=== PATIENT | male | born 1980 | race Caucasian/White ===

== ENCOUNTER 2018-03-03 21:05 | Observation (INO) | payer BC, OTHER ==
[2018-03-03] MEDS ORDERED: MORPHINE 4 MG/ML SYR ONE ×2 (21:33→23:24)
[2018-03-03] MEDS ORDERED: NA CHLORIDE 0.9% 1,000 ML ONE ×2 (21:34→22:14)
[2018-03-03] MEDS ORDERED: ONDANSETRON 4 MG/2 ML VIAL ONE (21:34)
[2018-03-03 21:45] LABS: Absolute Lymphocytes (CBC) 1.2 K/uL (0.7-4.9); Absolute Monocytes 0.9 K/uL (0.1-1.3); Absolute Neutrophil 15.9 K/uL (1.8-8.0); Basophils % 0.2 % (0-1.3); Eosinophils % 0.1 % (0-4.4); Hematocrit 47.4 % (39.6-49.0); Lymphocytes % 6.6 % (15.3-44.8); MCH 30.9 pg (27.0-35.0); MCV 88.9 fL (80-100); MPV 8.2 fL (7.6-11.3); Monocytes % 5.2 % (3.3-12.3); RBC Red Blood Cell Count 5.33 M/uL (4.33-5.43)
[2018-03-03 21:54] LABS: Protime INR 1.03
[2018-03-03 22:02] LABS: Blood Morphology Comment NOT SEEN (NOT SEEN); Platelet Estimate ADEQ; Urine White Blood Cell Casts OK
--- NOTE | 2018-03-03 22:04 | EDPHYS ---
Physician Documentation [facility] Name: Lang Cruz Age: 37 yrs Sex: Male : 1980 Arrival Date: 03/03/2018 Time: 21:06 Bed 15 Private MD: ED Physician Óscar Mayo HPI: 03/03 21:58 This 37 yrs old Male presents to ER via Ambulatory with complaints of germán Abdominal Pain. 21:58 The patient presents with abdominal pain in the lower abdomen, right lower quadrant. germán Onset: The symptoms/episode began/occurred 1 day(s) ago. The patient presents to the emergency department with nausea, vomiting, abdominal pain, of the right lower quadrant. Onset: The symptoms/episode began/occurred 1 day(s) ago. Possible causes: unknown. The symptoms are aggravated by nothing. The symptoms are alleviated by nothing. Associated signs and symptoms: The patient has no apparent associated signs or symptoms. Historical: - Allergies: 21:13 No Known Allergies; aj1 - Home Meds: 21:13 lisinopril Oral [Active]; Metformin Oral [Active]; aj1 - PMHx: 21:13 Diabetes - NIDDM; Hypertension; aj1 - PSHx: 21:13 Knee surgery; aj1 - Immunization history:: Flu vaccine is up to date. - Social history:: Smoking status: Patient uses tobacco products, smokes one-half pack cigarettes per day. - Ebola Screening: : Patient denies travel to an Ebola-affected area in the 21 days before illness onset. - Family history:: not pertinent. ROS: 21:58 Constitutional: Negative for fever, chills, and weight loss, Eyes: Negative for injury, germán pain, redness, and discharge, ENT: Negative for injury, pain, and discharge, Neck: Negative for injury, pain, and swelling, Cardiovascular: Negative for chest pain, palpitations, and edema, Respiratory: Negative for shortness of breath, cough, wheezing, and pleuritic chest pain, Back: Negative for injury and pain, : Negative for injury, bleeding, discharge, and swelling, MS/Extremity: Negative for injury and deformity, Skin: Negative for injury, rash, and discoloration, Neuro: Negative for headache, weakness, numbness, tingling, and seizure, Psych: Negative for depression, anxiety, suicide ideation, homicidal ideation, and hallucinations, Allergy/Immunology: Negative for hives, rash, and allergies, Endocrine: Negative for neck swelling, polydipsia, polyuria, polyphagia, and marked weight changes, Hematologic/Lymphatic: Negative for swollen nodes, abnormal bleeding, and unusual bruising. 21:58 Abdomen/GI: Positive for abdominal pain, nausea, vomiting, abdominal distension, of the right lower quadrant. Exam: 21:58 Constitutional: This is a well developed, well nourished patient who is awake, alert, germán and in no acute distress. Head/Face: Normocephalic, atraumatic. Eyes: Pupils equal round and reactive to light, extra-ocular motions intact. Lids and lashes normal. Conjunctiva and sclera are non-icteric and not injected. Cornea within normal limits. Periorbital areas with no swelling, redness, or edema. ENT: Nares patent. No nasal discharge, no septal abnormalities noted. Tympanic membranes are normal and external auditory canals are clear. Oropharynx with no redness, swelling, or masses, exudates, or evidence of obstruction, uvula midline. Mucous membranes moist. Neck: Trachea midline, no thyromegaly or masses palpated, and no cervical lymphadenopathy. Supple, full range of motion without nuchal rigidity, or vertebral point tenderness. No Meningismus. Chest/axilla: Normal chest wall appearance and motion. Nontender with no deformity. No lesions are appreciated. Cardiovascular: Regular rate and rhythm with a normal S1 and S2. No gallops, murmurs, or rubs. Normal PMI, no JVD. No pulse deficits. Respiratory: Lungs have equal breath sounds bilaterally, clear to auscultation and percussion. No rales, rhonchi or wheezes noted. No increased work of breathing, no retractions or nasal flaring. Back: No spinal tenderness. No costovertebral tenderness. Full range of motion. Male : Normal genitalia with no discharge or lesions. Skin: Warm, dry with normal turgor. Normal color with no rashes, no lesions, and no evidence of cellulitis. MS/ Extremity: Pulses equal, no cyanosis. Neurovascular intact. Full, normal range of motion. Neuro: Awake and alert, GCS 15, oriented to person, place, time, and situation. Cranial nerves II-XII grossly intact. Motor strength 5/5 in all extremities. Sensory grossly intact. Cerebellar exam normal. Normal gait. Psych: Awake, alert, with orientation to person, place and time. Behavior, mood, and affect are within normal limits. 21:58 Abdomen/GI: Inspection: abdomen appears normal, Bowel sounds: normal, Palpation: moderate abdominal tenderness, in the right lower quadrant, Indicators: McBurney's point is tender, Liver: no appreciated palpable abnormalities, Hernia: not appreciated. Vital Signs: 21:13 BP 171 / 103; Pulse 106; Resp 20; Temp 98.0(O); Pulse Ox 99% on R/A; Weight 106.59 kg aj1 (R); Height 5 ft. 11 in. (180.34 cm) (R); Pain 10/10; 22:30 BP 176 / 100; Pulse 94; Resp 22; Pulse Ox 100% on R/A; aa1 23:26 BP 177 / 103; Pulse 86; Resp 20; Pulse Ox 97% on R/A; aa1 21:13 Body Mass Index 32.78 (106.59 kg, 180.34 cm) [facility] MDM: 21:17 Patient medically screened. [facility] 22:00 Data reviewed: vital signs, nurses notes, lab test result(s), EKG, radiologic studies, [facility] CT scan, plain films. 03/03 21:20 Order name: Basic Metabolic Panel; Complete Time: 22:12 [facility] 03/03 21:20 Order name: CBC with Diff; Complete Time: 22:04 [facility] 03/03 21:20 Order name: LFT's; Complete Time: 22:12 [facility] 03/03 21:20 Order name: Magnesium; Complete Time: 22:12 [facility] 03/03 21:20 Order name: NT PRO-BNP; Complete Time: 22:12 [facility] 03/03 21:20 Order name: PT-INR; Complete Time: 22:04 [facility] 03/03 21:20 Order name: Troponin (emerg Dept Use Only); Complete Time: 22:12 [facility] 03/03 21:20 Order name: XRAY Chest (1 view) [facility] 03/03 21:20 Order name: Lipase; Complete Time: 22:12 [facility] 03/03 21:20 Order name: Urine Culture [facility] 03/03 21:21 Order name: CT Abd/Pelvis - W/Contrast [facility] 03/03 21:53 Order name: CBC Smear Scan; Complete Time: 22:04 [facility] 03/03 21:20 Order name: EKG; Complete Time: 21:21 [facility] 03/03 21:20 Order name: Cardiac monitoring; Complete Time: 21:38 [facility] 03/03 21:20 Order name: EKG - Nurse/Tech; Complete Time: 22:27 [facility] 03/03 21:20 Order name: IV Saline Lock; Complete Time: 21:25 [facility] 03/03 21:20 Order name: Labs collected and sent; Complete Time: 21:25 [facility] 03/03 21:20 Order name: O2 Per Protocol; Complete Time: 21:39 [facility] 03/03 21:20 Order name: O2 Sat Monitoring; Complete Time: 21:39 [facility] 03/03 22:08 Order name: CONS Physician Consult EDUT Administered Medications: 21:38 Drug: NS 0.9% 1000 ml Route: IV; Rate: 1 bolus; Site: right forearm; aj1 23:35 Follow up: IV Status: Completed infusion aa1 21:38 Drug: morphine 4 mg Route: IVP; Site: right forearm; aj1 23:22 Follow up: Response: No adverse reaction; Pain is unchanged, physician notified aa1 21:38 Drug: Zofran 4 mg Route: IVP; Site: right forearm; aj1 23:22 Follow up: Response: No adverse reaction; Nausea is decreased aa1 22:15 Drug: Mefoxin 2 grams Route: IVPB; Infused Over: 30 mins; Site: right antecubital; aa1 23:23 Follow up: IV Status: Completed infusion aa1 22:15 Drug: Flagyl 500 mg Volume: 100 ml; Route: IVPB; Rate: 200 ml/hr; Infused Over: 30 aa1 mins; Site: right antecubital; 23:35 Follow up: IV Status: Completed infusion aa1 23:24 Drug: morphine 4 mg Route: IVP; Site: right antecubital; aa1 23:36 Drug: NS 0.9% 1000 ml Route: IV; Rate: 125 ml/hr; Site: right antecubital; aa1 23:37 Follow up: IV Status: Infusion continued upon admission aa1 Disposition: 03/03/18 22:04 Hospitalization ordered by Sherry Coleman for Inpatient Admission. Preliminary diagnosis are Abdominal tenderness, Essential (primary) hypertension, Type 2 diabetes mellitus, Elevated white blood cell count, Acute appendicitis, Obesity, unspecified. - Bed requested for Telemetry/MedSurg (Inpatient). - Status is Inpatient Admission. aa1 - Condition is Fair. - Problem is new. - Symptoms have improved. UTI on Admission? No Signatures: Dispatcher [employer] EDCheri Echeverria, RN RN aj1 Sallie Tobias RN TISHA Moni Echols RN RN aa1 Óscar Mayo MD MD [facility] Corrections: (The following items were deleted from the chart) 22:12 22:04 Hospitalization Ordered by Sherry Coleman MD for Inpatient Admission. Preliminary [facility] diagnosis is Abdominal tenderness; Essential (primary) hypertension; Type 2 diabetes mellitus. Bed requested for Telemetry/MedSurg (Inpatient). Status is Inpatient Admission. Condition is Fair. Problem is new. Symptoms have improved. UTI on Admission? No. germán 22:29 22:12 03/03/2018 22:04 Hospitalization Ordered by Sherry Coleman MD for Inpatient mw Admission. Preliminary diagnosis is Abdominal tenderness; Essential (primary) hypertension; Type 2 diabetes mellitus; Elevated white blood cell count. Bed requested for Telemetry/MedSurg (Inpatient). Status is Inpatient Admission. Condition is Fair. Problem is new. Symptoms have improved. UTI on Admission? No. germán 22:37 22:29 03/03/2018 22:04 Hospitalization Ordered by Sherry Coleman MD for Inpatient germán Admission. Preliminary diagnosis is Abdominal tenderness; Essential (primary) hypertension; Type 2 diabetes mellitus; Elevated white blood cell count. Bed requested for Telemetry/MedSurg (Inpatient). Status is Inpatient Admission. Condition is Fair. Problem is new. Symptoms have improved. UTI on Admission? No. 22:37 22:37 03/03/2018 22:04 Hospitalization Ordered by Sherry Coleman MD for Inpatient germán Admission. Preliminary diagnosis is Abdominal tenderness; Essential (primary) hypertension; Type 2 diabetes mellitus; Elevated white blood cell count; Acute appendicitis. Bed requested for Telemetry/MedSurg (Inpatient). Status is Inpatient Admission. Condition is Fair. Problem is new. Symptoms have improved. UTI on Admission? No. germán 23:39 22:37 03/03/2018 22:04 Hospitalization Ordered by Sherry Coleman MD for Inpatient aa1 Admission. Preliminary diagnosis is Abdominal tenderness; Essential (primary) hypertension; Type 2 diabetes mellitus; Elevated white blood cell count; Acute appendicitis; Obesity, unspecified. Bed requested for Telemetry/MedSurg (Inpatient). Status is Inpatient Admission. Condition is Fair. Problem is new. Symptoms have improved. UTI on Admission? No. germán
--- NOTE | 2018-03-03 22:04 | ER ---
Nurse's Notes [facility] Name: Lang Cruz Age: 37 yrs Sex: Male : 1980 Arrival Date: 03/03/2018 Time: 21:06 Bed 15 Private MD: Diagnosis: Abdominal tenderness;Essential (primary) hypertension;Type 2 diabetes mellitus;Elevated white blood cell count;Acute appendicitis;Obesity, unspecified Presentation: 03/03 21:08 Presenting complaint: Patient states: Upper and lower abdominal pain, and mid back pain aj1 since yesterday that has gotten progressively worse. Reports nausea, denies V/D. Denies fever. Patient appears pale and diaphoretic. Transition of care: patient was not received from another setting of care. Onset of symptoms was March 02, 2018. Risk Assessment: Do you want to hurt yourself or someone else? Patient reports no desire to harm self or others. Initial Sepsis Screen: Does the patient meet any 2 criteria? HR > 90 bpm. No. Patient's initial sepsis screen is negative. Does the patient have a suspected source of infection? Yes: Acute abdominal pain. Care prior to arrival: None. 21:08 Method Of Arrival: Ambulatory aj1 21:08 Acuity: LEW 2 aj1 Triage Assessment: 21:13 General: Appears uncomfortable, Behavior is cooperative, restless. Pain: Complains of aj1 pain in back and abdomen Pain currently is 10 out of 10 on a pain scale. Neuro: Level of Consciousness is awake, alert, obeys commands. Cardiovascular:. Respiratory: Airway is patent Respiratory effort is even, unlabored, Respiratory pattern is regular, symmetrical. GI: Reports lower abdominal pain, upper abdominal pain. Derm: Skin is diaphoretic, Skin is pale. Historical: - Allergies: 21:13 No Known Allergies; aj1 - Home Meds: 21:13 lisinopril Oral [Active]; Metformin Oral [Active]; aj1 - PMHx: 21:13 Diabetes - NIDDM; Hypertension; aj1 - PSHx: 21:13 Knee surgery; aj1 - Immunization history:: Flu vaccine is up to date. - Social history:: Smoking status: Patient uses tobacco products, smokes one-half pack cigarettes per day. - Ebola Screening: : Patient denies travel to an Ebola-affected area in the 21 days before illness onset. - Family history:: not pertinent. Screenin:35 Abuse screen: Denies threats or abuse. Denies injuries from another. Nutritional aa1 screening: No deficits noted. Tuberculosis screening: No symptoms or risk factors identified. Fall Risk None identified. Assessment: 21:35 General: Appears in no apparent distress. uncomfortable, Behavior is calm, cooperative, aa1 appropriate for age. Pain: Complains of pain in right lower quadrant Pain currently is 10 out of 10 on a pain scale. Quality of pain is described as stabbing, Is continuous. Neuro: Level of Consciousness is awake, alert, obeys commands, Oriented to person, place, time, situation, Moves all extremities. Full function Gait is steady. Cardiovascular: Heart tones S1 S2 present Rhythm is regular. Respiratory: Airway is patent Respiratory effort is even, unlabored, Respiratory pattern is regular, symmetrical. GI: Abdomen is non-distended, Bowel sounds present X 4 quads. Abd is soft X 4 quads Abdomen is tender to palpation in right lower quadrant and left lower quadrant Reports lower abdominal pain, nausea. : No signs and/or symptoms were reported regarding the genitourinary system. EENT: No signs and/or symptoms were reported regarding the EENT system. Derm: Skin is intact, is healthy with good turgor, Skin is pink, warm \T\ dry. Musculoskeletal: Circulation, motion, and sensation intact. Capillary refill < 3 seconds. 23:23 Reassessment: Patient appears in no apparent distress at this time. Patient and/or aa1 family updated on plan of care and expected duration. Pain level reassessed. Patient is alert, oriented x 3, equal unlabored respirations, skin warm/dry/pink. Pt awaiting OR. 23:37 Reassessment: Patient appears in no apparent distress at this time. Patient is alert, aa1 oriented x 3, equal unlabored respirations, skin warm/dry/pink. OR staff present to take pt to surgery. Vital Signs: 21:13 BP 171 / 103; Pulse 106; Resp 20; Temp 98.0(O); Pulse Ox 99% on R/A; Weight 106.59 kg aj1 (R); Height 5 ft. 11 in. (180.34 cm) (R); Pain 10/10; 22:30 BP 176 / 100; Pulse 94; Resp 22; Pulse Ox 100% on R/A; aa1 23:26 BP 177 / 103; Pulse 86; Resp 20; Pulse Ox 97% on R/A; aa1 21:13 Body Mass Index 32.78 (106.59 kg, 180.34 cm) aj ED Course: 21:06 Patient arrived in ED. es 21:12 Triage completed. aj1 21:13 Arm band placed on Patient placed in an exam room. aj1 21:17 Óscar Mayo MD is Attending Physician. [facility] 21:25 Notified ED physician of other patient reports severe pain. Order received for morphine aj1 and zofran. See MAR for more information. 21:25 Initial lab(s) drawn, by wa, sent to lab. Inserted saline lock: 22 gauge in right aj forearm, using aseptic technique. Blood collected. 21:37 XRAY Chest (1 view) In Process Unspecified. EDMS 21:39 Patient has correct armband on for positive identification. Bed in low position. Call 1 light in reach. Side rails up X 1. personnel monitor on. Pulse ox on. NIBP on. 21:56 Moni Echols, TISHA is Primary Nurse. aa1 22:03 Sherry Coleman MD is Hospitalizing Provider. [facility] 22:[address] ri 22:37 CT completed. Patient tolerated procedure well. Patient moved back from [place]. ri 23:27 No provider procedures requiring assistance completed. Patient admitted, IV remains in aa1 place. Administered Medications: 21:38 Drug: NS 0.9% 1000 ml Route: IV; Rate: 1 bolus; Site: right forearm; aj1 23:35 Follow up: IV Status: Completed infusion aa1 21:38 Drug: morphine 4 mg Route: IVP; Site: right forearm; aj1 23:22 Follow up: Response: No adverse reaction; Pain is unchanged, physician notified aa1 21:38 Drug: Zofran 4 mg Route: IVP; Site: right forearm; aj1 23:22 Follow up: Response: No adverse reaction; Nausea is decreased aa1 22:15 Drug: Mefoxin 2 grams Route: IVPB; Infused Over: 30 mins; Site: right antecubital; aa1 23:23 Follow up: IV Status: Completed infusion aa1 22:15 Drug: Flagyl 500 mg Volume: 100 ml; Route: IVPB; Rate: 200 ml/hr; Infused Over: 30 aa1 mins; Site: right antecubital; 23:35 Follow up: IV Status: Completed infusion aa1 23:24 Drug: morphine 4 mg Route: IVP; Site: right antecubital; aa1 23:36 Drug: NS 0.9% 1000 ml Route: IV; Rate: 125 ml/hr; Site: right antecubital; aa1 23:37 Follow up: IV Status: Infusion continued upon admission aa1 Outcome: 22:04 Decision to Hospitalize by Provider. germán 23:38 Admitted to OR accompanied by nurse, accompanied by tech, family with patient, via aa1 stretcher, with chart. 23:38 Condition: stable 23:38 Instructed on the need for admit, Demonstrated understanding of instructions. 23:39 Patient left the ED. aa1 Signatures: Dispatcher [employer] Cheri Elizabeth RN RN aj1 Moni Echols RN RN aa1 Óscar Mayo MD MD cha Salyer, Vinod Ruth Corrections: (The following items were deleted from the chart) 21:15 21:08 Acuity: LEW 3 aj1 aj1
[2018-03-03 22:05] LABS: ALT/SGPT 46 U/L (12-78); AST/SGOT 16 U/L (15-37); Albumin 4.3 g/dL (3.4-5.0); Alkaline Phosphatase 83 U/L (45-117); BUN Blood Urea Nitrogen 12 mg/dL (7-18); Bicarbonate 21 mmol/L (21-32); Bilirubin Direct 0.2 mg/dL (0-0.2); Bilirubin Total 0.8 mg/dL (0.2-1.0); Glucose Level 197 mg/dL (74-106); Lipase 111 U/L (73-393); Magnesium 2.1 mg/dL (1.8-2.4); NT PRO-BNP 326 pg/mL (<125); Potassium 3.8 mmol/L (3.5-5.1); Protein, Total 8.7 g/dL (6.4-8.2); Sodium Level 138 mmol/L (136-145); Troponin (Emerg Dept Use Only) < 0.02 ng/mL (0.0-0.045)
[2018-03-03] MEDS ORDERED: METRONIDAZOLE 500mg IVPB 500 MG/100 ML BAG IV ONE (22:14)
[2018-03-03] MEDS ORDERED: NA CHLORIDE 0.9% 100 ML IV ONE (22:15)
[2018-03-03] MEDS ORDERED: CEFOXITIN SODIUM 2 GM/VIAL ONE (22:15)
[2018-03-03] MEDS ORDERED: ONDANSETRON 4 MG/2 ML VIAL IV PRN (23:52)
[2018-03-03] MEDS ORDERED: ACETAMINOPHEN 500 MG TAB PO PRN (23:52)
[2018-03-03] MEDS ORDERED: SUCCINYLCHOLINE 20 MG/ML (10 ML) IV ONE (23:54)
[2018-03-03] MEDS ORDERED: MORPHINE 2 MG/ML SYR IV PRN (23:57)
[2018-03-04] MEDS ORDERED: INSULIN -REGULAR HUMAN 50 UNIT/0.5 ML ML SQ SCH
[2018-03-04] MEDS ORDERED: PROPOFOL 200 MG/20 ML VIAL IV ONE (00:01)
[2018-03-04] MEDS ORDERED: MIDAZOLAM HCL 2 MG/2 ML INJ ONE (00:02)
[2018-03-04] MEDS ORDERED: FENTANYL CITR 250 MCG/5 ML ONE (00:02)
[2018-03-04] MEDS ORDERED: BUPIVACAINE 0.5% PF 10 ML VIAL ONE (00:05)
[2018-03-04] MEDS ORDERED: ROCURONIUM 50 MG/5 ML VIAL IV ONE (00:20)
[2018-03-04] MEDS: NA CHLORIDE 0.9% 1,000 ML IV SCH ×3 (00:23→15:27)
[2018-03-04] MEDS ORDERED: ONDANSETRON HCL 40 MG/20 ML VIAL ONE (00:40)
[2018-03-04] MEDS ORDERED: NEOSTIGMINE 1 MG/ML -5 ML SYRINGE ONE (00:41)
[2018-03-04] MEDS ORDERED: GLYCOPYRROLATE 0.2 MG/ML SYR ONE (00:41)
--- NOTE | 2018-03-04 00:48 | P.BOP ---
Preoperative diagnosis: acute appendicitis, DM, HTN Postoperative diagnosis: same Primary procedure: Laparoscopic appendectomy Estimated blood loss: <10cc Specimen: hector Findings: as above Anesthesia: General Complications: None Transferred to: Recovery Room Condition: Good
[2018-03-04] MEDS ORDERED: Ringers Lactate 1,000 ML IV ONE (01:04)
[2018-03-04] MEDS ORDERED: KETOROLAC TROM 60 MG/2 ML INJ IM ONE ×3 (01:09→01:15)
[2018-03-04] MEDS ORDERED: FENTANYL CITR 100 MCG/2 ML IV ONE ×4 (01:10→01:15)
[2018-03-04] MEDS ORDERED: FENTANYL CITR 100 MCG/2 ML ONE (01:14)
[2018-03-04] MEDS: HYDROCODONE/APAP 7.5/325 MG TAB PO PRN ×3 (03:40→21:25)
--- NOTE | 2018-03-04 04:06 | CON ---
Date of Consultation: 03/03/2018 Diagnoses: Acute appendicitis. History Of Present Illness: This is the case of a 37-year-old patient, who comes to us with acute ab dominal pain, 2 days of duration, associated with nausea and vomiting. Today, the pain was worse, he decided to come to the ER. The patient denies any dysuria, hematuria, hematochezia, or melena. Den ies any recent traveling out of the country. Denies any family member sick at home. Past Medical History: Diabetes and hypertension. Medications: Lisinopril and metformin. Past Surgical History: Knee surgery. Family History: Unremarkable. Allergies: NONE. Social History: He does not smoke. He does not drink alcohol. Physical Examination: General: The patient is awake and alert. HEENT: Pupils are equal and reactive, anicteric. Neck: Supple. Chest: Clear. Heart: S1, S2. Abdomen: Right lower quadrant tenderness with guarding and rebound. Rovsing sign positive. Psoas s igns positive. Genitalia: No masses. Rectal: Deferred. Extremities: Good capillary refill. Laboratory Data: Blood work shows a leukocytosis with WBC count of 19. CAT scan of the abdomen and pelvis positive for acute appendicitis. Assessment: This is a 37-year-old patient with acute appendicitis. Benefits, alternatives, and risk s of laparoscopic with possible open appendectomy were fully explained to the patient, which include but are not limited to infection, bleeding, damage to adjacent structures, anesthesia complication, M I, and even . He also understands this may not relieve his symptoms, he might need more than on e surgical intervention. He understood, signed the consent. The OR was emergently called. JENNIFER/RADHA Voice ID: [id number] Report ID: [id number]
[2018-03-04 04:46] VITALS: BMI 32.8
--- NOTE | 2018-03-04 05:10 | P.HP ---
Certification for Inpatient Patient admitted to: Inpatient With expected LOS: >2 Midnights Practitioner: I am a practitioner with admitting privileges, knowledge of patient current condition, hospital course, and medical plan of care. Services: Services provided to patient in accordance with Admission requirements found in Title 42 Section 412.3 of the Code of Federal Regulations Patient History Date of Service: 03/03/18 Reason for admission: Acute appendicitis History of Present Illness: Mr Cruz is a 37-year-old male with history of obesity, diabetes mellitus types 2, hypertension, who start with abdominal pain localized right lower quadrant since yesterday. He described the pain as a constant, dull, 10/10 of intensity, associated with nausea but no vomiting or diarrhea. He denies fever or chills. He has never had these kind of pain in the past. Laboratory work remarkable for leukocytosis [address] scan abdomen and pelvis consistent with acute appendicitis. At arrival the patient was on distress due to severe pain, afebrile, with stable vital signs. Allergies No Known Allergies Allergy (Verified 03/04/18 02:54) Home medications list reviewed: Yes - Past Medical/Surgical History Has patient received pneumonia vaccine in the past: No Diabetic: Yes -: hypertension -: diabetes -: astigmatism -: Tobacco abuse -: Alcohol use -: knee surgery Psychosocial/ Personal History: The patient is . He has no children. He works at a local [employer]. - Family History Father -: Heart disease, Lung disease - Social History Smoking Status: Current every day smoker Counseled patient to stop smoking for: less than 10 minutes Smoking therapy provided: Yes Patient receptive to therapy: No Alcohol use: Yes CD- Drugs: No Caffeine use: Yes Place of Residence: Home Review of Systems 10-point ROS is otherwise unremarkable Physical Examination - Vital Signs Temperature: 97.7 F Blood Pressure: 168/90 Pulse: 90 Respirations: 16 - Physical Exam General: Alert, In no apparent distress HEENT: Atraumatic, PERRLA, Mucous membr. moist/pink, EOMI, Sclerae nonicteric Neck: Supple, 2+ carotid pulse no bruit, No LAD, Without JVD or thyroid abnormality Respiratory: Clear to auscultation bilaterally, Normal air movement Cardiovascular: Regular rate/rhythm, Normal S1 S2 Gastrointestinal: Normal bowel sounds, Tenderness (Right lower quadrant) Musculoskeletal: No tenderness Integumentary: No rashes Neurological: Normal speech, Normal strength at 5/5 x4 extr, Normal tone, Normal affect Lymphatics: No axilla or inguinal lymphadenopathy - Studies Laboratory Data (last 24 hrs) 03/03/18 21:23: PT 12.2, INR 1.03 03/03/18 21:23: WBC 18.1 H, Hgb 16.5, Hct 47.4, Plt Count 239 03/03/18 21:23: Sodium 138, Potassium 3.8, BUN 12, Creatinine 0.70, Glucose 197 H, Magnesium 2.1, Total Bilirubin 0.8, AST 16, ALT 46, Alkaline Phosphatase 83, Lipase 111 Assessment and Plan - Plan Assessment: 1. Acute appendicitis 2. Diabetes mellitus types 2 3 hypertension 4. Tobacco abuse Plan The patient will be admitted to the hospital due to acute appendicitis. Dr. Vasquez has been consulted and he is planning to do an emergent laparoscopic appendectomy tonight. Will keep the patient NPO, start IV fluids, reviewed empiric antibiotics. - Advance Directives Does patient have a Living Will: No Does patient have a Durable POA for Healthcare: No - Code Status/Comfort Care Code Status Assessed: Yes Code Status: Full Code
[2018-03-04 05:18] LABS: Absolute Lymphocytes (CBC) 1.5 K/uL (0.7-4.9); Absolute Monocytes 1.3 K/uL (0.1-1.3); Absolute Neutrophil 15.5 K/uL (1.8-8.0); Basophils % 0.2 % (0-1.3); Eosinophils % 0.1 % (0-4.4); Hematocrit 40.9 % (39.6-49.0); MCH 31.3 pg (27.0-35.0); MCV 88.7 fL (80-100); MPV 8.7 fL (7.6-11.3); RBC Red Blood Cell Count 4.61 M/uL (4.33-5.43)
[2018-03-04 05:45] LABS: BUN Blood Urea Nitrogen 9 mg/dL (7-18); Bicarbonate 24 mmol/L (21-32); Glucose Level 192 mg/dL (74-106); Potassium 3.8 mmol/L (3.5-5.1); Sodium Level 138 mmol/L (136-145)
[2018-03-04] MEDS ORDERED: PNEUMOCOCCAL VACCINE 0.5 ML IMVAC ONE (06:00)
[2018-03-04] MEDS ORDERED: POTASSIUM CL SA 10 MEQ TAB PO ONE (06:22)
--- NOTE | 2018-03-04 06:36 | OP ---
Date of Procedure: 03/04/2018 Surgeon: Segundo Vasquez MD Preoperative Diagnosis: Acute appendicitis. Postoperative Diagnosis: Acute appendicitis. Procedure: Laparoscopic appendectomy. Anesthesia: General plus local. Indications: This is the case of a 37-year-old patient who come to us with acute appendicitis, fully explained the benefits, alternatives, and risks of laparoscopic, possible open appendectomy, which i nclude, but are not limited to infection, bleeding, damage to adjacent structures, anesthesia complic ation, negative appendix, TN, even . He also understands this may not relieve any symptoms. He might need more than one surgical intervention. He understood and signed a consent. Description Of Procedure: The patient was brought to the operating room and placed in supine positio n. Anesthesia was near without complication. Abdominal area was prepped and draped in a sterile fas hion. Marcaine 0.5% injected for local anesthetic, followed by sharp incision of the skin in the inf raumbilical region. Incision was carried down to fascia, which was opened under direct vision. Anna toneum was encountered, opened under direct vision. Vicryl #1 placed inside the fascia. Elise troc ar was carefully introduced. No bleeding was obtained. I placed 2 more trocars, 5 mm each one of th em, in the suprapubic and left lower quadrant under direct visualization. This allowed me to see an inflamed appendix. The base of the appendix seems to be spared, so we created a window in the base o f the appendix and transected that with an Endo LAVONNE 45 mm 3.5, and the mesoappendix with an Endo LAVONNE 45 mm 2.5. Further hemostasis was obtained with help of hemoclips. No bowel leak. No bleeding. Ap pendix removed from abdominal cavity using an EndoCatch through the umbilical incision. The area was irrigated and suctioned. No bowel leak. No bleeding. At that moment, I proceeded to remove the tr ocars under direct vision. Deflated pneumoperitoneum. Closed the fascia with #1 Vicryl, irrigated s ubcutaneous tissue, closed that with 3-0 chromic, and the skin with ben. Sponge count and instru ment counts were correct. The patient tolerated the procedure well. The patient was sent to recover y in stable condition. JENNIFER/RADHA Voice ID: [id number] Report ID: [id number]
--- NOTE | 2018-03-04 06:52 | RAD REPORT ---
EXAM DESCRIPTION: CT - Abdomen Pelvis W Contrast - 03/04/2018 3:57 am CLINICAL HISTORY: Abdominal pain A preliminary report was provided at the time of the study and reviewed prior to final report. COMPARISON: None. TECHNIQUE: Biphasic, helical CT imaging of the abdomen and pelvis was performed following 100 ml non -ionic IV contrast. Oral contrast was given. All CT scans are performed using dose optimization technique as appropriate and may include automated exposure control or mA/KV adjustment according to patient size. FINDINGS: No suspicious findings in the lung bases. Liver shows a very pronounced fatty infiltration pattern. No focal liver lesions seen. Spleen and luna creas show no suspicious findings. Gallbladder and biliary tree are also without suspicious finding. Renal function is symmetric. No hydronephrosis. No obstructing or nonobstructing calculi. No pyelonep hritis. In the anterior lower pole right kidney a 2 centimeter oval low-density mass is present. Atte nuation is 42 Hounsfield units. This does not meet CT criteria for simple cyst diagnosis. Complex cys t or low-density solid or mixed solid and cystic mass would be possible. There are no comparison stud ies available. No other liver parenchymal lesions seen. Partially filled urinary bladder shows no calvin picious finding. Prostate gland and seminal vesicles are normal. No gastric dilatation or gastric wall thickening. No small bowel abnormality. The appendix is abnorma l dilated to 15-18 mm in size. Punctate appendicolith is seen near the tip. Periappendiceal stranding is present. No free air, free fluid or other finding to suspect perforation. There is no abscess. Pa tient has small mesenteric lymph nodes. Colon is otherwise unremarkable. Sigmoid is tortuous. Appendi x is in classic right lower quadrant location. No free air, free fluid or pneumatosis. No other area of inflammatory stranding. No hernia, mass o r bulky lymphadenopathy. No adrenal abnormality. No suspicious bony findings. IMPRESSION: Acute appendicitis with no abscess, free air or other findings of perforation. Appendix is in classic right lower quadrant location. Approximately 2 centimeter low-density mass lower pole right kidney. This is most likely a complex cy st. Low-density solid mass or mixed solid/ cystic mass is lower in likelihood. Follow-up contrast-enh anced MR imaging would be recommended for further characterization. Renal sonography would be an alt ernative though the location and patient body habitus may limit the ability to fully characterize thi s structure by sonography. Diffuse fatty infiltration of the liver.
[2018-03-04] MEDS ORDERED: TRAMADOL HCL 50 MG TAB PO PRN (06:57)
[2018-03-04] MEDS: INSULIN -REGULAR HUMAN 50 UNIT/0.5 ML ML SQ SCH ×4 (07:30→21:00)
[2018-03-04] MEDS ORDERED: LISINOPRIL 20 MG TAB PO SCH (09:00)
[2018-03-04] MEDS: METRONIDAZOLE 500mg IVPB 500 MG/100 ML BAG IV SCH ×2 (09:26→17:55)
[2018-03-04] MEDS: CIPROFLOXACIN 400mg IV 400 MG/200 ML BAG IV SCH ×2 (09:26→21:00)
[2018-03-04] MEDS: PANTOPRAZOLE 40MG TABLET PO SCH (09:26)
--- NOTE | 2018-03-04 11:49 | EKG ---
Test Date: 2018-03-03 Test Time: 22:21:53 Front End Java Developer: DAMARIS MEASUREMENT RESULTS: Intervals: Rate: 79 DC: 138 QRSD: 88 QT: 378 QTc: 433 [place]: P: 33 DC: 138 QRS: 19 T: 25 INTERPRETIVE STATEMENTS: Normal sinus rhythm Normal ECG Compared to ECG 07/08/2017 11:16:16 No significant changes Electronically Signed On 03-04-18 11:46:32 CDT by Rob Jean
--- NOTE | 2018-03-04 12:52 | P.PN ---
Subjective Date of Service: 03/04/18 Primary Care Provider: none Chief Complaint: Acute appendicitis Subjective: Improving Physical Examination - Vital Signs Temperature: 97.7 F Blood Pressure: 168/90 Pulse: 90 Respirations: 16 - Physical Exam General: Alert, In no apparent distress, Oriented x3, Cooperative HEENT: Atraumatic Neck: Supple Respiratory: Clear to auscultation bilaterally, Normal air movement Cardiovascular: Normal pulses, Regular rate/rhythm Gastrointestinal: Normal bowel sounds, Soft and benign, Non-distended, Tenderness (slight pain. Post op changes noted. ) Musculoskeletal: No erythema, No tenderness, No warmth Integumentary: No tenderness/swelling, No erythema, No warmth, No cyanosis Neurological: Normal speech, Normal strength at 5/5 x4 extr, Normal tone, Normal affect - Studies Laboratory Data (last 24 hrs) 03/03/18 21:23: PT 12.2, INR 1.03 03/03/18 21:23: WBC 18.1 H, Hgb 16.5, Hct 47.4, Plt Count 239 03/03/18 21:23: Sodium 138, Potassium 3.8, BUN 12, Creatinine 0.70, Glucose 197 H, Magnesium 2.1, Total Bilirubin 0.8, AST 16, ALT 46, Alkaline Phosphatase 83, Lipase 111 Medications List Reviewed: Yes Assessment & Plan Discharge Plan: Home Plan to discharge in: 24 Hours Physician Review Additional Text: Impression: Abdominal pain secondary to Acute appendicitis status post Lap. appendectomy HTN, Uncontrolled. DM Type 2 Obesity, BMI 32.8 Plan: Abdominal pain secondary to Acute appendicitis status post Lap. appendectomy: Will advance his diet to soft. Encourage ambulation. If doing well by this afternoon then anticipate discharge later. Patient will need Augmentin 875 mg one pill BID for 6 days along with pain medication. HTN, Uncontrolled: Lisinopril 20 mg daily added. Will need to monitor closely. Patient will likely need medication at discharge. DM Type 2: Will check A1C. May need medication at discharge. Obesity, BMI 32.8: Will address lifestyle modification. Time Spent Managing Pts Care (In Minutes): 55
--- NOTE | 2018-03-04 13:59 | RAD REPORT ---
EXAM DESCRIPTION: RAD - Chest Single View - 03/03/2018 9:38 pm CLINICAL HISTORY: Upper abdominal pain, back pain Due to technical malfunction, all overnight and morning reports are delayed COMPARISON: June 2017 TECHNIQUE: AP portable chest image was obtained 2136 hours . FINDINGS: Lungs are clear. Heart and vasculature are normal. No measurable pleural effusion and no p neumothorax. No gross bony abnormality seen. No acute aortic findings suspected. IMPRESSION: No acute cardiopulmonary process. No significant interval change.
[2018-03-04] MEDS ORDERED: ENOXAPARIN 40 MG/0.4 ML SQ SCH (17:00)
[2018-03-05] MEDS ORDERED: AMPICILLIN/SULBACTAM 3GM/VIAL ONE (00:34)
[2018-03-05] MEDS ORDERED: AMPICILLIN/SULBACT 3 GM in NA CHLORIDE 0.9% 100 ML IVPB SCH (01:00)
[2018-03-05] MEDS ORDERED: NA CHLORIDE 0.9% 100 ML ONE (01:11)
[2018-03-05] MEDS: HYDROCODONE/APAP 7.5/325 MG TAB PO PRN (01:17)
[2018-03-05] MEDS: NA CHLORIDE 0.9% 1,000 ML IV SCH (04:52)
[2018-03-05 05:03] LABS: Absolute Lymphocytes (CBC) 2.2 K/uL (0.7-4.9); Absolute Monocytes 1.1 K/uL (0.1-1.3); Absolute Neutrophil 9.1 K/uL (1.8-8.0); Basophils % 0.4 % (0-1.3); Eosinophils % 0.9 % (0-4.4); Hematocrit 40.4 % (39.6-49.0); Lymphocytes % 17.5 % (15.3-44.8); MCH 31.4 pg (27.0-35.0); MCV 89.6 fL (80-100); MPV 8.5 fL (7.6-11.3); Monocytes % 8.8 % (3.3-12.3); RBC Red Blood Cell Count 4.51 M/uL (4.33-5.43)
[2018-03-05 05:30] LABS: BUN Blood Urea Nitrogen 13 mg/dL (7-18); Bicarbonate 25 mmol/L (21-32); Glucose Level 171 mg/dL (74-106); Magnesium 2.1 mg/dL (1.8-2.4); Potassium 4.1 mmol/L (3.5-5.1); Sodium Level 139 mmol/L (136-145)
[2018-03-05] MEDS: PANTOPRAZOLE 40MG TABLET PO SCH (05:41)
--- NOTE | 2018-03-05 06:16 | P.DS ---
Admission Date: 03/03/18 Discharge Date: 03/05/18 Primary Care Provider: none Disposition: ROUTINE DISCHARGE Discharge Condition: GOOD Reason for Admission: Acute appendicitis Brief History of Present Illness: Mr Cruz is a 37-year-old male with history of obesity, diabetes mellitus types 2, hypertension, who start with abdominal pain localized right lower quadrant since yesterday. He described the pain as a constant, dull, 10/10 of intensity, associated with nausea but no vomiting or diarrhea. He denies fever or chills. He has never had these kind of pain in the past. Laboratory work remarkable for leukocytosis [address] scan abdomen and pelvis consistent with acute appendicitis. At arrival the patient was on distress due to severe pain, afebrile, with stable vital signs. Hospital Course: The patient was admitted to the hospital due to acute appendicitis. Dr. Vasquez evaluate the patient on the night of admission, he performed an emergent laparoscopic appendectomy. The patient tolerated the procedure very well without any immediate complication. Gradually he was advancing his diet without any problems. During his stay, his BP has been on the higher side, lisinopril dose was increasing to 20 mg p.o. daily. Currently the patient is hemodynamically stable, tolerating well oral intake. He will be discharged home with 5 days of oral antibiotics to finish his treatment. Follow-up with Dr. Vasquez in 1-2 weeks. Vital Signs/Physical Exam: Temp Pulse Resp BP Pulse Ox 97.1 F 101 H 20 141/77 H 97 03/05/18 00:00 03/05/18 00:00 03/05/18 00:00 03/05/18 00:00 03/05/18 00:00 General: Alert, In no apparent distress HEENT: Atraumatic, PERRLA, EOMI Neck: Supple, JVD not distended Respiratory: Clear to auscultation bilaterally, Normal air movement Cardiovascular: Regular rate/rhythm, Normal S1 S2 Gastrointestinal: Normal bowel sounds, Tenderness (surgical wound area) Musculoskeletal: No tenderness Integumentary: No rashes Neurological: Normal speech, Normal tone, Normal affect Lymphatics: No axilla or inguinal lymphadenopathy Laboratory Data at Discharge: WBC 12.6 K/uL (4.3-10.9) H D 03/05/18 04:11 Hgb 14.2 g/dL (13.6-17.9) 03/05/18 04:11 Hct 40.4 % (39.6-49.0) 03/05/18 04:11 Plt Count 195 K/uL (152-406) 03/05/18 04:11 PT 12.2 SECONDS (9.5-12.5) 03/03/18 21:23 INR 1.03 03/03/18 21:23 Sodium 139 mmol/L (136-145) 03/05/18 04:11 Potassium 4.1 mmol/L (3.5-5.1) 03/05/18 04:11 BUN 13 mg/dL (7-18) 03/05/18 04:11 Creatinine 0.80 mg/dL (0.55-1.3) 03/05/18 04:11 Glucose 171 mg/dL (74-106) H 03/05/18 04:11 Magnesium 2.1 mg/dL (1.8-2.4) 03/05/18 04:11 Total Bilirubin 0.8 mg/dL (0.2-1.0) 03/03/18 21:23 AST 16 U/L (15-37) 03/03/18 21:23 ALT 46 U/L (12-78) 03/03/18 21:23 Alkaline Phosphatase 83 U/L (45-117) 03/03/18 21:23 Lipase 111 U/L (73-393) 03/03/18 21:23 Home Medications: Metformin HCl [Glucophage] 1,000 mg PO BID 03/04/18 Amoxicillin/Potassium Clav [Augmentin 875-125 Tablet] 1 each PO BID #10 tablet 03/05/18 Lisinopril [Prinivil*] 20 mg PO DAILY #30 tab 03/05/18 traMADol HCL [Ultram*] 50 mg PO TID PRN #30 tab 03/05/18 New Medications: Amoxicillin/Potassium Clav [Augmentin 875-125 Tablet] 1 each PO BID #10 tablet Lisinopril [Prinivil*] 20 mg PO DAILY #30 tab traMADol HCL [Ultram*] 50 mg PO TID PRN #30 tab PRN Reason: Pain Mild Diet: ADA Activity: Ad kimani Followup: Segundo Vasquez MD [ACTIVE - CAN ADMIT] - 1 Week Time spent managing pt's care (in minutes): 40
[2018-03-05 10:26] VITALS: BP 131/89; TEMP 99.4
[2018-03-05 15:59] VITALS: O2SAT 96
== END 2018-03-05 08:51 | disposition home or self-care (01) ==
LOC: ER 21:05 → INTOOBSV 22:05 → ERHOLD 22:05 → 2ND 23:51
PROVIDERS: ADMIT Internal Medicine; ATTEND Internal Medicine
PROC: 0DTJ4ZZ Resection of Appendix, Percutaneous Endoscopic Approach (ICD-10-PCS; principal; 2018-03-04)
DX: K35.80 Unspecified acute appendicitis (principal); E11.9 Type 2 diabetes mellitus without complications; I10 Essential (primary) hypertension; E66.9 Obesity, unspecified; Z68.32 Body mass index [BMI] 32.0-32.9, adult; F17.210 Nicotine dependence, cigarettes, uncomplicated
CPT/HCPCS: 36415; 71045; 74177; 80048; 80076; 82962; 83036; 83690; 83735; 83880; 84443; 84484; 85025; 85610; 88304; 93005; 99285; G0378; J0295; J0330; J0694; J0744; J1650; J1885; J2250; J2405; J2710; J3010; J7030; Q9967

== ENCOUNTER 2018-06-24 14:47 | Emergency (ER) | payer BC ==
[2018-06-24] MEDS ORDERED: CYCLOBENZAPRINE 10 MG TAB ONE (15:29)
[2018-06-24] MEDS ORDERED: HYDROCODONE/APAP 10/325 TAB ONE (15:30)
[2018-06-24] MEDS ORDERED: KETOROLAC 30 MG/ML INJ ONE (15:30)
--- NOTE | 2018-06-24 16:00 | EDPHYS ---
Physician Documentation [facility] Name: Lang Cruz Age: 37 yrs Sex: Male : 1980 Arrival Date: 06/24/2018 Time: 14:50 Bed 26 Private MD: ED Physician Chevy Escobedo HPI: 06/24 15:16 This 37 yrs old Male presents to ER via Ambulatory with complaints of Leg pm1 Pain, Back Pain. 15:16 The patient presents with pain. The complaints affect the left leg and low back area. pm1 Context: The problem was sustained at work, resulted from Bending and lifting, the patient can fully bear weight, the patient is able to ambulate, using cane since Friday, Problem is a result from a previous injury: No. Onset: The symptoms/episode began/occurred 5 day(s) ago. Modifying factors: The symptoms are alleviated by nothing. the symptoms are aggravated by lifting left leg up. Associated signs and symptoms: Pertinent negatives calf tenderness, fever, swelling. Treatment prior to arrival includes: over the counter medications, NSAIDS. The patient has not experienced similar symptoms in the past. Patient was at work bending and lifting light object. [place] some pain in his left lower back that did not bother him too much. Continued to work. Pain in his lower back resolved but now has some left buttocks pain radiating down his left hamstring. Pain increased with lifting left leg. Historical: - Allergies: 15:00 No Known Allergies; jl7 - Home Meds: 15:00 lisinopril Oral [Active]; Metformin Oral [Active]; jl7 - PMHx: 15:00 Diabetes - NIDDM; Hypertension; jl7 - Immunization history:: Adult Immunizations up to date. - Social history:: Smoking status: Patient uses tobacco products, smokes one pack cigarettes per day. - Ebola Screening: : No symptoms or risks identified at this time. ROS: 15:16 Constitutional: Negative for fever, chills, and weight loss, Eyes: Negative for injury, pm1 pain, redness, and discharge, ENT: Negative for injury, pain, and discharge, Neck: Negative for injury, pain, and swelling, Cardiovascular: Negative for chest pain, palpitations, and edema, Respiratory: Negative for shortness of breath, cough, wheezing, and pleuritic chest pain, Abdomen/GI: Negative for abdominal pain, nausea, vomiting, diarrhea, and constipation. 15:16 : Negative for injury, bleeding, discharge, and swelling, MS/Extremity: Negative for injury and deformity, Skin: Negative for injury, rash, and discoloration, Neuro: Negative for headache, weakness, numbness, tingling, and seizure. 15:16 Back: Positive for low back pain resolved Friday. Pain radiating down left leg. Exam: 15:16 Constitutional: This is a well developed, well nourished patient who is awake, alert, pm1 and in no acute distress. Head/Face: Normocephalic, atraumatic. Chest/axilla: Normal chest wall appearance and motion. Nontender with no deformity. No lesions are appreciated. Cardiovascular: Regular rate and rhythm with a normal S1 and S2. No gallops, murmurs, or rubs. Normal PMI, no JVD. No pulse deficits. Respiratory: Lungs have equal breath sounds bilaterally, clear to auscultation and percussion. No rales, rhonchi or wheezes noted. No increased work of breathing, no retractions or nasal flaring. Abdomen/GI: Soft, non-tender, with normal bowel sounds. No distension or tympany. No guarding or rebound. No evidence of tenderness throughout. Back: No spinal tenderness. No costovertebral tenderness. Full range of motion. Skin: Warm, dry with normal turgor. Normal color with no rashes, no lesions, and no evidence of cellulitis. 15:16 Musculoskeletal/extremity: Extremities: grossly normal except: noted in the left lateral gluteus arnav: slight tenderness, Circulation is intact in all extremities. Calf tenderness, is absent, Edema, is not appreciated. 15:16 Neuro: Orientation: is normal, Motor: is normal, Sensation: is normal, no obvious gross deficits, Gait: is steady, at a normal pace, without difficulty. Vital Signs: 15:00 BP 158 / 105; Pulse 106; Resp 16 S; Temp 99.7(O); Pulse Ox 98% on R/A; Weight 106.59 kg jl7 (R); Height 5 ft. 11 in. (180.34 cm) (R); Pain 10/10; 16:14 BP 145 / 90; Pulse 95; Resp 18; Pulse Ox 100% on R/A; Pain 3/10; mg2 15:00 Body Mass Index 32.78 (106.59 kg, 180.34 cm) jl7 MDM: 15:09 Patient medically screened. pm1 15:59 Data reviewed: vital signs. Data interpreted: Pulse oximetry: on room air is 98 %. pm1 Interpretation: normal. Counseling: I had a detailed discussion with the patient and/or guardian regarding: the historical points, exam findings, and any diagnostic results supporting the discharge/admit diagnosis, the need for outpatient follow up, to return to the emergency department if symptoms worsen or persist or if there are any questions or concerns that arise at home. Administered Medications: 15:25 Drug: TORadol 60 mg Route: IM; Site: left gluteus; mg2 16:13 Follow up: Response: No adverse reaction; Marked relief of symptoms mg2 15:25 Drug: Flexeril 10 mg Route: PO; mg2 16:13 Follow up: Response: No adverse reaction; Marked relief of symptoms mg2 15:25 Drug: [place] 10 mg-325 mg 1 tabs Route: PO; mg2 16:13 Follow up: Response: No adverse reaction; Marked relief of symptoms mg2 Disposition: 16:40 Co-signature as Attending Physician, Chevy Escobedo MD. rn Disposition: 06/24/18 16:00 Discharged to Home. Impression: Sciatica, right side. - Condition is Stable. - Discharge Instructions: Sciatica. - Prescriptions for Naprosyn 500 mg Oral Tablet - take 1 tablet by ORAL route 2 times per day As needed take with food; 30 tablet. Tylenol- Codeine #3 300-30 mg Oral Tablet - take 2 tablets by ORAL route every 6 hours As needed; 20 tablet. Cyclobenzaprine 10 mg Oral Tablet - take 1 tablet by ORAL route every 8 hours As needed; 30 tablet. - Work release form, Medication Reconciliation Form, Thank You Letter, Prescription Opioid Use form. - Follow up: Emergency Department; When: As needed; Reason: Worsening of condition. Follow up: Private Physician; When: 2 - 3 days; Reason: Recheck today's complaints, Continuance of care, Re-evaluation by your physician. - Problem is new. - Symptoms have improved. Signatures: Chevy Escobedo MD MD rn Marinas, Patrick, DEVIN REAL ESTATE ACQUISITION ANALYST pm1 Sav Mina RN RN jl7 [place], Mik, RN RN mg2 Corrections: (The following items were deleted from the chart) 16:14 16:00 06/24/2018 16:00 Discharged to Home. Impression: Sciatica, right side. Condition mg2 is Stable. Forms are Medication Reconciliation Form, Thank You Letter, Antibiotic Education, Prescription Opioid Use. Follow up: Emergency Department; When: As needed; Reason: Worsening of condition. Follow up: Private Physician; When: 2 - 3 days; Reason: Recheck today's complaints, Continuance of care, Re-evaluation by your physician. Problem is new. Symptoms have improved. pm1
--- NOTE | 2018-06-24 16:00 | ER ---
Nurse's Notes [facility] Name: Lang Cruz Age: 37 yrs Sex: Male : 1980 Arrival Date: 06/24/2018 Time: 14:50 Bed 26 Private MD: Diagnosis: Sciatica, right side Presentation: 06/24 14:57 Presenting complaint: Patient states: Shooting pain from lower back to left leg, jl7 shooting pain feels numb. "Last Friday it felt like I pinched a nerve or something at work then it started feeling better. Then Friday this started.". Transition of care: patient was not received from another setting of care. Onset of symptoms was June 23, 2018. Risk Assessment: Do you want to hurt yourself or someone else? Patient reports no desire to harm self or others. Initial Sepsis Screen: Does the patient meet any 2 criteria? No. Patient's initial sepsis screen is negative. Does the patient have a suspected source of infection? No. Patient's initial sepsis screen is negative. Care prior to arrival: None. 14:57 Method Of Arrival: Ambulatory [facility] 14:57 Acuity: LEW 3 jl7 Triage Assessment: 15:00 General: Appears in no apparent distress. uncomfortable, Behavior is calm, cooperative, jl7 appropriate for age. Pain: Complains of pain in low back area Pain radiates to left leg Pain currently is 10 out of 10 on a pain scale. Musculoskeletal: Range of motion: limited in back. Historical: - Allergies: 15:00 No Known Allergies; jl7 - Home Meds: 15:00 lisinopril Oral [Active]; Metformin Oral [Active]; jl7 - PMHx: 15:00 Diabetes - NIDDM; Hypertension; jl7 - Immunization history:: Adult Immunizations up to date. - Social history:: Smoking status: Patient uses tobacco products, smokes one pack cigarettes per day. - Ebola Screening: : No symptoms or risks identified at this time. Screenin:14 Abuse screen: Denies threats or abuse. Denies injuries from another. Nutritional mg2 screening: No deficits noted. Tuberculosis screening: No symptoms or risk factors identified. Fall Risk Ambulatory Aid- Crutches/Cane/Walker (15 pts). Assessment: 15:12 General: Appears in no apparent distress. comfortable, Behavior is calm, cooperative. mg2 Pain: Complains of pain in left leg and back and low back area Pain does not radiate. Pain currently is 10 out of 10 on a pain scale. Quality of pain is described as pinching, Pain began gradually, 2-3 days ago. Is intermittent. Neuro: Level of Consciousness is awake, alert, obeys commands, Oriented to person, place, time, situation. Cardiovascular: Capillary refill < 3 seconds Patient's skin is warm and dry. Respiratory: Airway is patent Respiratory effort is even, unlabored, Respiratory pattern is regular, symmetrical. GI: No signs and/or symptoms were reported involving the gastrointestinal system. : No signs and/or symptoms were reported regarding the genitourinary system. EENT: No signs and/or symptoms were reported regarding the EENT system. Derm: Skin is intact, is healthy with good turgor, Skin is pink, warm \\T\\ dry. normal. Musculoskeletal: Circulation, motion, and sensation intact. Capillary refill < 3 seconds, Reports pain in back of the left thigh since friday. Pain is 10 out of 10 on a pain scale. 16:13 Reassessment: patient improved. mg2 Vital Signs: 15:00 BP 158 / 105; Pulse 106; Resp 16 S; Temp 99.7(O); Pulse Ox 98% on R/A; Weight 106.59 kg jl7 (R); Height 5 ft. 11 in. (180.34 cm) (R); Pain 10/10; 16:14 BP 145 / 90; Pulse 95; Resp 18; Pulse Ox 100% on R/A; Pain 3/10; mg2 15:00 Body Mass Index 32.78 (106.59 kg, 180.34 cm) jl7 ED Course: 14:50 Patient arrived in ED. mr 14:59 Triage completed. jl7 15:00 Arm band placed on right wrist. jl7 15:03 Mik Moreno, TISHA is Primary Nurse. mg2 15:05 Sin Chavez NP is PHCP. pm1 15:05 Chevy Escobedo MD is Attending Physician. pm1 15:14 Patient has correct armband on for positive identification. Door closed. mg2 15:14 No provider procedures requiring assistance completed. Patient did not have IV access mg2 during this emergency room visit. Administered Medications: 15:25 Drug: TORadol 60 mg Route: IM; Site: left gluteus; mg2 16:13 Follow up: Response: No adverse reaction; Marked relief of symptoms mg2 15:25 Drug: Flexeril 10 mg Route: PO; mg2 16:13 Follow up: Response: No adverse reaction; Marked relief of symptoms mg2 15:25 Drug: [place] 10 mg-325 mg 1 tabs Route: PO; mg2 16:13 Follow up: Response: No adverse reaction; Marked relief of symptoms mg2 Outcome: 16:00 Discharge ordered by . pm1 16:14 Discharged to home ambulatory, with cane mg2 16:14 Condition: stable 16:14 Discharge instructions given to patient, Instructed on discharge instructions, follow up and referral plans. medication usage, Demonstrated understanding of instructions, follow-up care, medications, Prescriptions given X 3. 16:14 Patient left the ED. mg2 Signatures: Kala Torrez YuliyaSin wen, DEVIN TANBARK LABORER pm1 Sav Mina, TISHA RN jl7 Mik Moreno RN RN mg2
[2018-06-24 16:33] VITALS: TEMP 99.7
[2018-06-24 16:35] VITALS: BP 145/90; O2SAT 100
== END 2018-06-24 16:14 | disposition home or self-care (01) ==
LOC: ER 14:47
DX: M54.31 Sciatica, right side (principal); I10 Essential (primary) hypertension; E11.9 Type 2 diabetes mellitus without complications; F17.210 Nicotine dependence, cigarettes, uncomplicated
CPT/HCPCS: 96372; 99283

== ENCOUNTER 2021-03-25 15:09 | Emergency (ER) | payer BC, SELFPAY ==
[2021-03-25] MEDS ORDERED: NA CHLORIDE 0.9% 1,000 ML ONE (16:15)
[2021-03-25 16:56] LABS: Absolute Lymphocytes (CBC) 1.6 K/uL (0.7-4.9); Basophils % 0.7 % (0-1.3); Hematocrit 47.2 % (39.6-49.0); Lymphocytes % 21.3 % (15.3-44.8); MPV 7.8 fL (7.6-11.3)
--- NOTE | 2021-03-25 16:59 | RAD REPORT ---
EXAM DESCRIPTION: RAD - Chest Single View - 03/25/2021 4:18 pm CLINICAL HISTORY: thoracic pain COMPARISON: March 03, 2018 TECHNIQUE: AP portable chest image was obtained 03/25/2021 4:18 pm . FINDINGS: Lungs are clear. Heart and vasculature are normal. No measurable pleural effusion and no p neumothorax. No acute bony abnormality seen. No acute aortic findings suspected. IMPRESSION: No acute cardiopulmonary process. No significant change from comparison study.
[2021-03-25 17:16] LABS: BUN Blood Urea Nitrogen 8 mg/dL (7-18); Bicarbonate 26 mmol/L (21-32); Glucose Level 325 mg/dL (74-106); Potassium 4.4 mmol/L (3.5-5.1); Sodium Level 140 mmol/L (136-145)
--- NOTE | 2021-03-25 17:49 | ER ---
Nurse's Notes [facility] Name: Lang Cruz Age: 40 yrs Sex: Male : 1980 Arrival Date: 03/25/2021 Time: 15:11 Bed 27 Private MD: Diagnosis: Hyperglycemia, unspecified;Dehydration;Essential (primary) hypertension Presentation: 03/25 15:24 Chief complaint: Patient states: States back pain, body aches and blood sugar read 497 vg1 at home. States is feeling fatigue and weak. Stated is urinating more than usual. Denies NVD. FSBS tested in triage 373. States medical hx of DM but does not take medication for it. Coronavirus screen: Vaccine status: Patient reports receiving the 2nd dose of the covid vaccine. Ebola Screen: Patient negative for fever greater than or equal to 101.5 degrees Fahrenheit, and additional compatible Ebola Virus Disease symptoms. Initial Sepsis Screen: Does the patient meet any 2 criteria? No. Patient's initial sepsis screen is negative. Does the patient have a suspected source of infection? No. Patient's initial sepsis screen is negative. Risk Assessment: Do you want to hurt yourself or someone else? Patient reports no desire to harm self or others. Onset of symptoms was March 25, 2021. 15:24 Method Of Arrival: Ambulatory vg1 15:24 Acuity: LEW 3 vg1 Triage Assessment: 15:26 General: Appears in no apparent distress. uncomfortable, Behavior is calm, cooperative. vg1 Pain: Complains of pain in back. Musculoskeletal: Circulation, motion, and sensation intact. Historical: - Allergies: 15:26 No Known Allergies; vg1 - PMHx: 15:26 Diabetes - NIDDM; Hypertension; vg1 - PSHx: 15:26 Appendectomy; Back; vg1 - Immunization history:: Adult Immunizations up to date, Client reports receiving the 2nd dose of the Covid vaccine. - Social history:: Smoking status: Patient reports the use of cigarette tobacco products, smokes one pack cigarettes per day. - Family history:: not pertinent. - Hospitalizations: : No recent hospitalization is reported. Screenin:33 Abuse screen: Denies threats or abuse. Denies injuries from another. Nutritional tr6 screening: No deficits noted. Tuberculosis screening: No symptoms or risk factors identified. Fall Risk None identified. Assessment: 15:45 Reassessment: pt states that he ran out of his BP and DM medication and noticed that tr6 his glucose was elevated. General: Appears in no apparent distress. comfortable, Behavior is calm, cooperative, appropriate for age. Pain: Denies pain. Neuro: No deficits noted. Cardiovascular: No deficits noted. Respiratory: No deficits noted. GI: No deficits noted. : No deficits noted. EENT: No deficits noted. Derm: No deficits noted. Musculoskeletal: No deficits noted. 16:33 Reassessment: pts labs hemolyzed and need to be redrawn. aware. pending phelebotomy. tr6 16:43 Reassessment: phelebotomy at bedside to redraw labs. tr6 17:04 Reassessment: water given with permission from . tr6 Vital Signs: 15:24 BP 177 / 99; Pulse 80; Resp 18; Temp 97.7; Pulse Ox 100% ; Pain 10/10; vg1 ED Course: 15:11 Patient arrived in ED. rg4 15:17 Chevy Escobedo MD is Attending Physician. rn 15:22 Marylin Victoria RN is Primary Nurse. tr6 15:26 Triage completed. vg1 15:26 Arm band placed on. vg1 15:49 Inserted saline lock: 18 gauge in right forearm, using aseptic technique. Blood tr6 collected. 16:18 XRAY Chest (1 view) In Process Unspecified. EDMS 16:33 No provider procedures requiring assistance completed. tr6 16:34 Patient has correct armband on for positive identification. Side rails up X2. tr6 18:12 IV discontinued, intact, bleeding controlled, No redness/swelling at site. Pressure tr6 dressing applied. Administered Medications: 15:52 Drug: NS 0.9% 1000 ml Route: IV; Rate: 1000 ml; Site: right forearm; tr6 17:30 Follow up: Response: No adverse reaction; IV Status: Completed infusion; IV converted tr6 to saline lock; IV Intake: 1000ml 17:57 Drug: metFORMIN 500 mg Route: PO; tr6 Intake: 17:30 IV: 1000ml; Total: 1000ml. tr6 Outcome: 17:49 Discharge ordered by . rn 18:12 Discharged to home ambulatory. tr6 18:12 Condition: good 18:12 Discharge instructions given to patient, Instructed on discharge instructions, follow up and referral plans. no drinking with medication, medication usage, safety practices, Demonstrated understanding of instructions, follow-up care, medications, Prescriptions given X 2. 18:13 Patient left the ED. tr6 Signatures: Dispatcher [employer] EDChevy Carpenter MD MD rn Garcia, Rubi rg4 Flavia Fairbanks RN RN vg1 Marylin Victoria RN RN tr6 Corrections: (The following items were deleted from the chart) 15:27 15:24 Chief complaint: Patient states: States back pain, body aches and blood sugar vg1 read 497 at home. States is feeling fatigue and weak. Stated is urinating more than usual. Denies NVD. FSBS tested in triage 373 vg1
--- NOTE | 2021-03-25 17:49 | EDPHYS ---
Physician Documentation [facility] Name: Lang Cruz Age: 40 yrs Sex: Male : 1980 Arrival Date: 03/25/2021 Time: 15:11 Bed 27 Private MD: ED Physician Chevy Escobedo HPI: 03/25 16:21 This 40 yrs old Male presents to ER via Ambulatory with complaints of High rn Blood Sugar, Body Aches. 16:21 The patient or guardian reports hyperglycemia, that was potentially precipitated by Not rn taking his Metformin due to running out. Onset: The symptoms/episode began/occurred at an unknown time. Associated signs and symptoms: Pertinent positives: polydipsia, polyuria, Pertinent negatives: anorexia, decreased urine output, seizure activity. Current symptoms: In the emergency department the patient's symptoms are unchanged from the initial presentation. The patient has experienced similar episodes in the past. The patient has not recently seen a physician. Patient reports ran out of Metformin and blood pressure medication 6 to 9 months ago. Reports has been checking blood pressure for the last few weeks once a week and has been doing okay may be in the 200s. Recently noticed blood sugar in the high 400s. Increase polyuria and polydipsia lately. No syncope or seizure. Reports generalized fatigue and muscle cramps. Also out of his lisinopril for the same amount of time.. Historical: - Allergies: 15:26 No Known Allergies; vg1 - PMHx: 15:26 Diabetes - NIDDM; Hypertension; vg1 - PSHx: 15:26 Appendectomy; Back; vg1 - Immunization history:: Adult Immunizations up to date, Client reports receiving the 2nd dose of the Covid vaccine. - Social history:: Smoking status: Patient reports the use of cigarette tobacco products, smokes one pack cigarettes per day. - Family history:: not pertinent. - Hospitalizations: : No recent hospitalization is reported. ROS: 16:21 Constitutional: Negative for fever, chills Eyes: Negative for injury, pain, redness, rn and discharge, Neck: Negative for injury, pain, and swelling, Cardiovascular: Negative for chest pain, palpitations, and edema, Respiratory: Negative for shortness of breath, cough, wheezing, and pleuritic chest pain, Abdomen/GI: Negative for abdominal pain, nausea, vomiting, diarrhea, and constipation, Back: Negative for injury and pain, : Negative for injury, bleeding, discharge, and swelling, MS/Extremity: Negative for injury and deformity, Skin: Negative for injury, rash, and discoloration, Neuro: Negative for headache, numbness, tingling, and seizure. 16:21 All other systems are negative. Exam: 16:21 Constitutional: This is a well developed, well nourished patient who is awake, alert, rn and in no acute distress. Head/Face: Normocephalic, atraumatic. Eyes: Periorbital areas with no swelling, redness, or edema. ENT: Dry mucous membranes Cardiovascular: Regular rate and rhythm. No pulse deficits. Respiratory: No increased work of breathing, no retractions or nasal flaring. Abdomen/GI: Soft, non-tender Skin: Warm, dry MS/ Extremity: Pulses equal, no cyanosis. Neuro: Awake and alert, GCS 15, oriented to person, place, time, and situation. Cranial nerves II-XII grossly intact. Motor strength 5/5 in all extremities. Sensory grossly intact. Cerebellar exam normal. Normal gait. Vital Signs: 15:24 BP 177 / 99; Pulse 80; Resp 18; Temp 97.7; Pulse Ox 100% ; Pain 10/10; vg1 MDM: 15:17 Patient medically screened. rn 17:47 Differential diagnosis: DKA, hyperglycemia. 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 Test interpretation: by ED physician or midlevel provider: ECG, plain radiologic studies, Chest x-ray negative for pneumonia or pneumothorax. Counseling: I had a detailed discussion with the patient and/or guardian regarding: the historical points, exam findings, and any diagnostic results supporting the discharge/admit diagnosis, lab results, radiology results, the need for outpatient follow up, to return to the emergency department if symptoms worsen or persist or if there are any questions or concerns that arise at home. Response to treatment: the patient's symptoms have mildly improved after treatment, and as a result, I will discharge patient. Special discussion: I discussed with the patient/guardian in detail that at this point there is no indication for admission to the hospital. It is understood, however, that if the symptoms persist or worsen the patient needs to return immediately for re-evaluation. 03/25 15:32 Order name: Glucose, Ancillary Testing; Complete Time: 15:36 EDMS 03/25 15:36 Order name: CBC with Diff rn 03/25 15:36 Order name: Basic Metabolic Panel rn 03/25 15:36 Order name: Hemoglobin A1c rn 03/25 15:36 Order name: Ketone, Serum rn 03/25 15:36 Order name: CBC with Automated Diff; Complete Time: 17:13 EDMS 03/25 15:36 Order name: IV Start; Complete Time: 15:49 rn 03/25 15:36 Order name: EKG; Complete Time: 15:37 rn 03/25 15:36 Order name: XRAY Chest (1 view); Complete Time: 17:13 rn 03/25 15:36 Order name: Basic Metabolic Panel; Complete Time: 17:47 EDMS 03/25 15:36 Order name: Acetone Level; Complete Time: 17:47 EDMS 03/25 15:36 Order name: EKG - Nurse/Tech; Complete Time: 15:53 rn 03/25 15:36 Order name: Glucose Level; Complete Time: 15:37 rn Administered Medications: 15:52 Drug: NS 0.9% 1000 ml Route: IV; Rate: 1000 ml; Site: right forearm; tr6 17:30 Follow up: Response: No adverse reaction; IV Status: Completed infusion; IV converted tr6 to saline lock; IV Intake: 1000ml 17:57 Drug: metFORMIN 500 mg Route: PO; tr6 Disposition Summary: 03/25/21 17:49 Discharge Ordered Location: Home rn Problem: an ongoing problem rn Symptoms: have improved rn Condition: Stable rn Diagnosis - Hyperglycemia, unspecified rn - Dehydration rn - Essential (primary) hypertension rn Followup: rn - With: Private Physician - When: As needed - Reason: Recheck today's complaints, Re-evaluation by your physician Discharge Instructions: - Discharge Summary Sheet rn - Dehydration, Adult rn - Hyperglycemia rn - Blood Glucose Monitoring, Adult rn Forms: - Medication Reconciliation Form rn - Thank You Letter rn - [employer] leadership program internship - Prescription Opioid Use rn - Work release form eb Prescriptions: - metformin 500 mg Oral tablet - take 1 tablet by ORAL route 2 times per day with morning and evening meals; 90 rn tablet; Refills: 0, Product Selection Permitted - Lisinopril 20 mg Oral Tablet - take 1 tablet by ORAL route once daily; 60 tablet; Refills: 0, Product rn Selection Permitted Signatures: Dispatcher [employer] Chevy Lozano MD MD rn Garcia, TISHA Alejandor RN 1 Marylin Victoria RN RN tr6 Corrections: (The following items were deleted from the chart) 15:36 15:36 Hemoglobin A1C ordered. EDMS EDMS 15:36 15:36 Hemoglobin A1C ordered. EDMS EDMS
[2021-03-25] MEDS ORDERED: METFORMIN HCL 500 MG TAB ONE (18:20)
== END 2021-03-25 18:13 | disposition home or self-care (01) ==
LOC: ER 15:09
DX: E11.65 Type 2 diabetes mellitus with hyperglycemia (principal); E86.0 Dehydration; I10 Essential (primary) hypertension; Z91.14 Patient's other noncompliance with medication regimen; F17.210 Nicotine dependence, cigarettes, uncomplicated
CPT/HCPCS: 36415; 71045; 80048; 82010; 82947; 85025; 96360; 96361; 99284; J7030

== ENCOUNTER 2025-02-07 12:05 | Emergency (ER) | payer SELFPAY ==
[2025-02-07 13:17] LABS: Absolute Lymphocytes (CBC) 2.0 K/uL (0.7-4.9); Hematocrit 41.1 % (39.6-49.0); Hemoglobin 14.1 g/dL (13.6-17.9); MCH 29.8 pg (27.0-35.0); MCHC 34.3 g/dL (32.0-36.0); MCV 86.9 fL (80-100); MPV 7.8 fL (7.6-11.3); Nucleated RBC Absolute Count 0.0 (0-0); Nucleated Red Blood Cells % 0.0 % (0-0); RBC Red Blood Cell Count 4.73 M/uL (4.33-5.43); White Blood Count 8.80 thou/uL (4.3-10.9)
[2025-02-07 13:26] LABS: PT Prothrombin Time 11.5 SECONDS (10-13.0); PTT, Activated Partial Thromb 29.5 SECONDS (27.2-37.4); Protime INR 1.02
[2025-02-07 13:33] LABS: ALT/SGPT 27 U/L (16-61); Albumin 3.1 g/dL (3.4-5.0); Albumin/Globulin Ratio 0.8 (1.1-1.8); Alkaline Phosphatase 80 U/L (45-117); Anion Gap 10.7 mEq/L (5.0-15.0); BUN Blood Urea Nitrogen 14 mg/dL (7-18); Globulin 4.0 g/dL (2.3-3.5); Glucose Level 320 mg/dL (74-106); Potassium 3.7 mEq/L (3.5-5.1)
[2025-02-07 13:34] LABS: AST/SGOT < 10 U/L (15-37)
[2025-02-07] MEDS ORDERED: NA CHLORIDE 0.9% 1,000 ML ONE (13:54)
--- NOTE | 2025-02-07 14:36 | RAD REPORT ---
EXAMINATION: CT PELVIS WITHOUT CONTRAST CLINICAL INDICATION: Male, 44 years old.[facility] MAIN perirectal abscess Bed Name: 12 TECHNIQUE: CT pelvis was performed, without IV contrast, as per department protocol. Axial, sagittal and coronal reconstructions were obtained. One or more of the following dose reduction techniques were used: Automated exposure control, adjustment of the mA and/or kV according to patient size, and/ or iterative reconstruction. Unless otherwise specified, incidental findings do not require dedicated imaging follow-up. COMPARISON: No prior exam. FINDINGS: The lack of intravenous contrast limits the sensitivity of this exam for evaluation of solid visceral organs, vascular structures, and retroperitoneum. Right perineal through medial buttock skin thickening. Subcutaneous fat stranding on the right, with the linear soft tissue density tract measuring up to 2 cm in greatest axial dimensions, with suggestion of subtle punctate foci of gas along its caudal aspect. No appreciable discrete fluid kiana ection. MUSCULOSKELETAL: No acute or suspicious osseous abnormality of the bony pelvis. Moderate degenerative changes at L5-S1, with minimal retrolisthesis of L5 over S1 measuring 5 mm. Mild to moderate left more than right neural foraminal narrowing. URINARY SYSTEM: No abnormalities of the included kidneys and ureters. Urinary bladder is unremarkable . GASTROINTESTINAL TRACT: Included small bowel is normal in caliber. No wall thickening or bowel inflam matory changes. LYMPH NODES: Asymmetrically prominent right external iliac chain lymph nodes largest measuring 11 mm in short axis, and right inguinal lymph nodes largest measuring 1.8 cm in short axis. ABDOMINAL AORTA AND OTHER VESSELS: Normal caliber aorta and IVC. ADDITIONAL FINDINGS: Mild body wall edema more pronounced along the right gluteal region more so than the left. IMPRESSION: No acute abnormalities of the bony pelvis. Right perineal through medial buttock skin thickening and subcutaneous fat stranding without an appre ciable fluid collection. Findings appear inflammatory in nature. Possibility of a perianal fistula could be considered, although this would not be well assessed on CT. Please correlate clinically. Asymmetric mild lymphadenopathy along the right external iliac chain and right inguinal region.
--- NOTE | 2025-02-07 14:49 | ER ---
Nurse's Notes [facility] Name: Lang Cruz Age: 44 yrs Sex: Male : 1980 Arrival Date: 02/07/2025 Time: 12:05 Bed 12 Private MD: Diagnosis: Cutaneous abscess of buttock;Type 2 diabetes mellitus with hyperglycemia Presentation: 02/07 12:09 Chief complaint: Patient states: 'LARGE HARD KNOT INSIDE RT BUTTOCKS THAT BEGAN OOZING dd2 BLOOD AND PUS 4-5 DAYS AGO'. Coronavirus screen: At this time, the client does not indicate any symptoms associated with coronavirus-19. Ebola Screen: No symptoms or risks identified at this time. Initial Sepsis Screen: Does the patient meet any 2 criteria? No. Patient's initial sepsis screen is negative. Does the patient have a suspected source of infection? No. Patient's initial sepsis screen is negative. Risk Assessment: Do you want to hurt yourself or someone else? Patient reports no desire to harm self or others. Onset of symptoms was February 02, 2025. 12:09 Method Of Arrival: Ambulatory dd2 12:09 Acuity: LEW 3 dd2 Triage Assessment: 12:12 General: Appears in no apparent distress. uncomfortable, Behavior is calm, cooperative, dd2 appropriate for age. Pain: Complains of pain in gluteal cleft Pain currently is 5 out of 10 on a pain scale. at worst was 10 out of 10 on a pain scale. Derm: Reports pain that is 5 out of 10 on a pain scale. Historical: - Allergies: 12:12 No Known Allergies; dd2 - PMHx: 12:12 Diabetes - NIDDM; Hypertension; dd2 - PSHx: 12:12 Appendectomy; back; dd2 - Immunization history:: Adult Immunizations up to date. - Infectious Disease History:: Denies. - Social history:: Smoking status: Patient reports the use of cigarette tobacco products, smokes one pack cigarettes per day. Screenin:21 [facility] ED Fall Risk Assessment (Adult) History of falling in the last 3 months, ll1 including since admission No falls in past 3 months (0 pts) Confusion or Disorientation No (0 pts) Intoxicated or Sedated No (0 pts) Impaired Gait No (0 pts) Mobility Assist Device Used No (0 pt) Altered Elimination No (0 pt) Score/Fall Risk Level 0 - 2 = Low Risk Maintained a safe environment, Hourly rounding (assess needs \T\ fall precautionary measures) done. Abuse screen: Denies threats or abuse. Nutritional screening: No deficits noted. Tuberculosis screening: No symptoms or risk factors identified. Assessment: 15:04 Reassessment: No changes from previously documented assessment. Patient and/or family ll1 updated on plan of care and expected duration. Pain level reassessed. 15:21 Reassessment: No changes from previously documented assessment. Patient and/or family ll1 updated on plan of care and expected duration. Pain level reassessed. Patient is alert, oriented x 3, equal unlabored respirations, skin warm/dry/pink. Vital Signs: 12:09 BP 167 / 91; Pulse 91; Resp 16; Temp 98.5; Pulse Ox 100% ; Weight 88.45 kg; Height 5 dd2 ft. 11 in. ; Pain 5/10; 15:21 BP 147 / 92; Pulse 71; Resp 16; Pulse Ox 100% ; ll1 12:09 Body Mass Index 27.20 (88.45 kg, 180.34 cm) dd2 12:09 Pain Scale: Adult dd2 ED Course: 12:08 Patient arrived in ED. al6 12:11 Belkys Carlos PA-C is PHCP. sb4 12:11 Joseph Aranda DO is Attending Physician. sb4 12:12 Triage completed. dd2 12:12 Arm band placed on left wrist. dd2 12:15 Patient has correct armband on for positive identification. Bed in low position. ll1 Provided Education on: ER procedures and process. 12:40 Initial lab(s) drawn, by clinical lab clerk, sent to lab. ts3 12:40 Inserted saline lock: 20 gauge in right forearm, using aseptic technique. Blood ts3 collected. Flushed with 10 mL NS. 12:55 First set of blood cultures drawn by me, Second set of blood cultures drawn by me. ts3 13:44 CT Pelvis w cont In Process Unspecified. EDMS 15:21 No provider procedures requiring assistance completed. IV discontinued, intact, ll1 bleeding controlled, No redness/swelling at site. Pressure dressing applied. Administered Medications: 13:55 Drug: NS 0.9% IV 1000 ml IV at 1000 ml once; to be given as a bolus over 60 minutes dd2 Route: IV; Rate: 1000 ml; Site: right forearm; 15:03 Follow up: Response: No adverse reaction; IV Status: Completed infusion; IV Intake: ll1 1000ml 14:57 Drug: metFORMIN PO 500 mg PO once; with meal or snack Route: PO; ll1 15:22 Follow up: Response: No adverse reaction 1 14:58 Drug: Rocephin IV 1 grams IV at calculated rate once; Given slow IV push per pharmacy ll1 instructions Route: IV; Rate: calculated rate; Site: right antecubital; 15:22 Follow up: Response: No adverse reaction; IV Status: Completed infusion; IV Intake: [id number] Medication: 15:22 VIS not applicable for this client. ll1 Intake: 15:03 IV: 1000ml; Total: 1000ml. ll1 15:22 IV: 10ml; Total: 1010ml. 1 Outcome: 14:47 Discharge ordered by MD. sb4 15:22 Discharged to home ambulatory, 1 15:22 Condition: stable 15:22 Discharge instructions given to patient, family, Instructed on discharge instructions, follow up and referral plans. medication usage, wound care, Demonstrated understanding of instructions, follow-up care, medications, wound care, Prescriptions given X 2, 15:23 Patient left the ED. 1 Signatures: Dispatcher [employer] EDTim Seymour RN RN ll1 Belkys Carlos, PA-C PAFatmata sb4 MARY STEPHENS RN RN dd2 Moni Barbosa Taisha ts3 Corrections: (The following items were deleted from the chart) 13:03 13:03 Initial lab(s) drawn, by clinical lab clerk, sent to lab. ts3 ts3 13:04 13:03 Inserted saline lock: 20 gauge in right forearm, using aseptic technique. Blood ts3 collected. Flushed with 10 mL NS ts3
--- NOTE | 2025-02-07 14:49 | EDPHYS ---
Physician Documentation [facility] Name: Lang Cruz Age: 44 yrs Sex: Male : 1980 Arrival Date: 02/07/2025 Time: 12:05 Bed 12 Private MD: ED Physician Joseph Aranda HPI: 02/07 12:47 This 44 yrs old Male presents to ER via Ambulatory with complaints of Wound Check - sb4 butt. 12:47 The patient presents with an abscess of the gluteal cleft. Description: The affected sb4 area is moderate sized, irregular, draining, raised, swollen, tense, warm. Onset: The symptoms/episode began/occurred 5 day(s) ago. Possible cause(s): unknown. Associated signs and symptoms: Pertinent positives: discharge, drainage, foreign body sensation, swelling. The patient has experienced a previous episode, but today's symptoms are worse. 12:50 Patient reports an abscess near his rectum for 4-5 days now, states it started draining sb4 2 to 3 days ago. Denies any fever. Does have a history of diabetes, has not been on medication for quite some time now. Denies any fever or chills. States he did have an abscess in this location before, but it popped and went away on its own. Historical: - Allergies: 12:12 No Known Allergies; dd2 - PMHx: 12:12 Diabetes - NIDDM; Hypertension; dd2 - PSHx: 12:12 Appendectomy; back; dd2 - Immunization history:: Adult Immunizations up to date. - Infectious Disease History:: Denies. - Social history:: Smoking status: Patient reports the use of cigarette tobacco products, smokes one pack cigarettes per day. ROS: 12:47 Constitutional: Negative for fever, chills, and weight loss, sb4 12:47 Skin: Positive for abscess, of the gluteal cleft, 12:47 All other systems are negative, Exam: 12:47 Head/Face: Normocephalic, atraumatic. Eyes: Extra-ocular motions intact. Periorbital sb4 areas with no swelling, redness, or edema. ENT: Mucous membranes moist. Cardiovascular: Regular rate and rhythm with a normal S1 and S2. Abdomen/GI: Soft, non-tender, no distension. 12:47 Constitutional: The patient appears in no acute distress, alert, awake, 12:47 Skin: abscess, that is moderate sized, of the gluteal cleft, with drainage, that is purulent, with induration, Vital Signs: 12:09 BP 167 / 91; Pulse 91; Resp 16; Temp 98.5; Pulse Ox 100% ; Weight 88.45 kg; Height 5 dd2 ft. 11 in. ; Pain 5/10; 15:21 BP 147 / 92; Pulse 71; Resp 16; Pulse Ox 100% ; ll1 12:09 Body Mass Index 27.20 (88.45 kg, 180.34 cm) dd2 12:09 Pain Scale: Adult dd2 MDM: 12:12 Medical Screening Exam initiated sb4 12:48 Differential diagnosis: abscess, sepsis, hyperglycemia, cellulitis. Data reviewed: sb4 vital signs, nurses notes. 13:36 Care significantly affected by the following chronic conditions: Diabetes, Hypertension.sb4 14:11 Independent interpretation of the following test(s) in the Emergency Department CT sb4 Scan: My interpretation is My interpretation of the pelvis with contrast CT images is small collection noted perirectally. 14:50 Consideration of Admission/Observation Escalation of care including sb4 admission/observation considered. Counseling: I had a detailed discussion with the patient and/or guardian regarding the historical points, exam findings, and any diagnostic results supporting the discharge/admit diagnosis, the presence of at least one elevated blood pressure reading (>120/80) during this emergency department visit, lab results, radiology results, the need for outpatient follow up, for definitive care, to return to the emergency department if symptoms worsen or persist or if there are any questions or concerns that arise at home. Special discussion: I discussed with the patient/guardian in detail that at this point there is no indication for admission to the hospital. It is understood, however, that if the symptoms persist or worsen the patient needs to return immediately for re-evaluation. 02/07 12:35 Order name: Blood Culture Adult (2) sb4 02/07 12:35 Order name: CBC with Diff; Complete Time: 13:23 sb4 02/07 12:35 Order name: CMP; Complete Time: 13:35 sb4 02/07 12:35 Order name: Lactate w/ 2H reflex if indic.; Complete Time: 13:31 sb4 02/07 12:35 Order name: Protime (+inr); Complete Time: 13:28 sb4 02/07 12:35 Order name: Ptt, Activated; Complete Time: 13:28 sb4 02/07 12:35 Order name: CT Pelvis w cont; Complete Time: 14:37 sb4 02/07 12:35 Order name: IV Saline Lock - Large Bore; Complete Time: 13:02 sb4 02/07 12:35 Order name: Labs collected and sent; Complete Time: 13:02 sb4 02/07 12:39 Order name: Gown patient; Complete Time: 13:04 sb4 Administered Medications: 13:55 Drug: NS 0.9% IV 1000 ml IV at 1000 ml once; to be given as a bolus over 60 minutes dd2 Route: IV; Rate: 1000 ml; Site: right forearm; 15:03 Follow up: Response: No adverse reaction; IV Status: Completed infusion; IV Intake: ll1 1000ml 14:57 Drug: metFORMIN PO 500 mg PO once; with meal or snack Route: PO; ll1 15:22 Follow up: Response: No adverse reaction ll1 14:58 Drug: Rocephin IV 1 grams IV at calculated rate once; Given slow IV push per pharmacy ll1 instructions Route: IV; Rate: calculated rate; Site: right antecubital; 15:22 Follow up: Response: No adverse reaction; IV Status: Completed infusion; IV Intake: [id number] Disposition: 16:13 I was immediately available on-site in the Emergency Department for consultation in the ms3 care of the patient. Disposition Summary: 02/07/25 14:47 Discharge Ordered Notes: Location: Home sb4 Problem: new sb4 Symptoms: have improved sb4 Condition: Stable sb4 Diagnosis - Cutaneous abscess of buttock sb4 - Type 2 diabetes mellitus with hyperglycemia sb4 Followup: sb4 - With: Emergency Department - When: As needed - Reason: Fever > 102 F, Worsening of condition Discharge Instructions: - Discharge Summary Sheet sb4 - Skin Abscess, [id number] sb4 Forms: - Work release form ll1 - Antibiotic Education sb4 - Patient Portal Instructions sb4 - Leadership Thank You Letter sb4 Prescriptions: - Doxycycline Hyclate 100 mg Oral Tablet - take 1 tablet ORAL route every 12 hours; 20 tablet; Refills: 0, Product sb4 Selection Permitted - Metformin 500 mg Oral tablet - take 1 tablet ORAL route every 12 hours; 60 tablet; Refills: 0, Product sb4 Selection Permitted Signatures: Dispatcher [employer] EDMS Tim Donald, RN RN ll1 Joseph Aranda, DO ms3 Belkys Carlos PA-C PA-C sb4 MARY STEPHENS, RN RN dd2 Corrections: (The following items were deleted from the chart) 12:35 12:35 BLOOD CULTURE*+BA.LAB.BRZ ordered. EDMS EDMS 12:35 12:35 CBC+H.LAB.BRZ ordered. EDMS EDMS 12:35 12:35 COMPREHENSIVE METABOLIC PANEL+C.LAB.BRZ ordered. EDMS EDMS 12:35 12:35 LACTATE+C.LAB.BRZ ordered. EDMS EDMS 12:35 12:35 PROTIME (+INR)+COAG.LAB.BRZ ordered. EDMS EDMS 12:35 12:35 PTT, ACTIVATED+COAG.LAB.BRZ ordered. EDMS EDMS 12:36 12:35 Pelvis W/Cont+CT.RAD.BRZ ordered. EDMS EDMS
[2025-02-07] MEDS ORDERED: CEFTRIAXONE 1000 MG/VIAL ONE (14:54)
[2025-02-07] MEDS ORDERED: METFORMIN HCL 500 MG TAB ONE (14:54)
[2025-02-07 18:50] VITALS: TEMP 98.5; O2SAT 100
[2025-02-07 18:52] VITALS: BP 147/92
== END 2025-02-07 15:23 | disposition home or self-care (01) ==
LOC: ER 12:05
DX: L02.31 Cutaneous abscess of buttock (principal); E11.65 Type 2 diabetes mellitus with hyperglycemia; F17.210 Nicotine dependence, cigarettes, uncomplicated
CPT/HCPCS: 36415; 72193; 80053; 83605; 85025; 85610; 85730; 87040; J0696; J7030; Q9967